=== PATIENT | female | born 1970 | race Two or more races ===

== ENCOUNTER 2020-10-24 09:45 | Outpatient (REF) | payer OTHER, SELFPAY | END 2020-10-24 09:46 | disposition home or self-care (01) | LOC: HO.LAB 09:45 | PROVIDERS: Visit Provider Internal Medicine | DX: Z20.822 Contact with and (suspected) exposure to COVID-19 (principal) | CPT/HCPCS: 36415; C9803; U0003; U0005 ==

== ENCOUNTER 2021-07-11 12:14 | Outpatient (REF) | payer OTHER, SELFPAY ==
[2021-07-11 12:47] LABS: COVID-19 Test Negative (Negative)
== END 2021-07-11 12:15 | disposition home or self-care (01) ==
LOC: HO.LAB 12:14
PROVIDERS: PCP Internal Medicine; Visit Provider Internal Medicine
DX: Z20.822 Contact with and (suspected) exposure to COVID-19 (principal)
CPT/HCPCS: 36415; 87635; C9803

== ENCOUNTER 2022-11-27 16:25 | Emergency (ER) | payer OTHER, SELFPAY ==
[2022-11-27 16:33] VITALS: BP 117/78; PULSE 69; RESP 17; TEMP 36.1; O2SAT 99; BMI 24.4
--- NOTE | 2022-11-27 21:45 | ED.EAR ---
HPI - Ear Problem General Chief complaint: Ear Problems Stated complaint: R facial numbness Time Seen by Provider: 11/27/22 21:35 Source: patient Mode of arrival: ambulatory Limitations: no limitations History of Present Illness HPI Narrative: Patient comes to the emergency room complaining of 1 week of feeling that her right ear is blocked, patient has decreased hearing., yesterday at 19:00, patient started noticing that the right earlobe was feeling numb. Patient denies any facial numbness or tingling. Patient states that occasionally she can hear her ear ringing, feels a bit itchy. Patient denies any pain or any discharge. Related Data Previous Rx's Medication Instructions Recorded carbamide peroxide 6.5 % ear drops 5 drp otic (ear) right Q12H 4 days 11/27/22 (Ear Wax Removal Kit) #15 mL Allergies Allergy/AdvReac Type Severity Reaction Status Date / Time No Known Allergies Allergy Verified 11/27/22 21:50 Review of Systems Review of Systems: Constitutional : No Weight loss, No Fever, No Chills, No Night Sweats, No Fatigue, No Malaise ENT/Mouth : Complaining of decreased hearing on the right ear, ringing sensation in the right ear, numbness of the right earlobe, No Ear Pain, No Nasal Congestion, No Sinus Pain, No Hoarseness, No sore throat, No Rhinorrhea, No Swallowing Difficulty Eyes: No Eye Pain, No Swelling, No Redness, No Foreign Body, No Discharge, No Vision Changes Cardiovascular : No Chest Pain, No SOB, No Dyspnea on Exertion, No Orthopnea, No Edema, No Palpitations Respiratory : No Cough, No Sputum, No Wheezing, No Smoke Exposure, No Dyspnea Gastrointestinal : No Nausea, No Vomiting, No Diarrhea, No Constipation, No abdominal Pain, No Hematochezia, No Melena Genitourinary : no irregular bleeding, No Dysuria, No Urinary Frequency, No Hematuria, No Urinary Incontinence, No Urgency, No Flank Pain, No Urinary Flow Changes, No Hesitancy Musculoskeletal : No joint pain, No Myalgias, No Joint Swelling Skin : No Skin Lesions, No rash Neuro : No Weakness, No Numbness, No Paresthesias, No Loss of Consciousness, No Dizziness, No Headache Psych : No Anxiety/Panic, No Depression, No SI/HI/AH/VH, No Social Issues, Heme/Lymph: No Bruising, No Bleeding,No Lymphadenopathy Endocrine : No Polyuria, No Polydipsia, No Temperature Intolerance [facility], [facility] Social History Social History Advance Directives: No Advance Directives Information Provided: No Physical Exam Vital Signs: Vital Signs: Last Vital Signs Temp 96.9 F 11/27/22 16:33 Pulse 69 11/27/22 16:33 Resp 17 11/27/22 16:33 BP 117/78 11/27/22 16:33 Pulse Ox 99 11/27/22 16:33 O2 Del Method Room Air 11/27/22 16:33 BMI result Body Mass Index 24.4 Const: Other: Appearance: Alert. Oriented X3. No acute distress. Eyes: Pupils equal, round and reactive to light. ENT: Pharynx normal. Left ear within normal limits, right ear there is a cerumen ear plug present Neck: Normal inspection. Neck supple. No lymph nodes noted. No crepitus CVS: Normal heart rate and rhythm. Pulses normal. Normal S1 and S2 Respiratory: No respiratory distress. Breath sounds normal. No Wheezing. No rales Abdomen: Soft and nontender. No rigidity. No distention. Skin: Skin warm and dry. Normal skin color. Normal skin turgor. Extremities: No lower extremity edema. No Lacerations. No Rash Neuro: Oriented X 3. No motor deficit. No sensory deficit. Moving all extremities. No slurred speech. CN 2 through 12 grossly intact Psych: calm, cooperative, normal affect NIH Stroke Scale Level of Consciousness: Alert Level of Consciousness Questions: Answers both questions correctly Level of Consciousness Commands: Performs both tasks correctly Best Gaze: Normal Visual: No visual loss Facial Palsy: Normal Motor Arm (Right): No drift Motor Arm (Left): No drift Motor Leg (Right): No drift Motor Leg (Left): No drift Limb Ataxia: Absent Sensory: Normal Best Language: No aphasia Dysarthia: Normal Extinction and Inattention: No abnormality Score: 0 Medical Decision Making Medical Decision Making MDM Narrative: -I discussed the physical exam with the patient, patient has cerumen in the right ear likely causing all her symptoms. -there is no signs of infection, otitis unlikely. Patient does have ringing in the ear, but no dizziness, Meniere's unlikely. There was no foreign body present. Patient has only numbness sensation in the ear lobe, cranial nerves are intact, no numbness or tingling in the face -discussed with the patient that at this time if we remove the earwax it would be too painful because it is very dry, patient will be using ear drops for the next few days, then go to her primary care physician, urgent care or the ER for earwax removal Differential Diagnosis Differential Diagnoses: The differential diagnosis associated with the presentation includes Discharge Plan Discharge Clinical Impression: Cerumen impaction Patient Disposition: Home, Self-Care Additional Instructions: Please follow-up with your primary care physician tomorrow. If you have any worsening or new symptoms, please return to the emergency room or call 911 Prescriptions: New Ear Wax Removal Kit 6.5 % drops 5 drp otic (ear) right Q12H 4 Days Qty: 15 0RF
== END 2022-11-27 22:28 | disposition home or self-care (01) ==
PROVIDERS: Emergency Provider Emergency Medicine; PCP Internal Medicine
DX: H61.21 Impacted cerumen, right ear (principal); H93.11 Tinnitus, right ear
CPT/HCPCS: 99282; 99283